=== PATIENT | female | born 1975 | race Caucasian/White ===

== ENCOUNTER 2017-09-21 12:49 | Emergency (ER) | payer BC, SELFPAY ==
[2017-09-21 12:50] VITALS: BP 156/90; PULSE 84; RESP 16; TEMP 36.3; O2SAT 99; BMI 32.2
--- NOTE | 2017-09-21 13:05 | ED.DCSUM_ITS ---
- ER Visit Summary Date of Service: 09/21/17 Chief Complaint: Right hand pain History of Present Illness: The patient is a 42 F who has right hand pain. She states she woke up with it this morning. She was working around the yard yesterday and was poked in the hand with a kendall tariq. She also had her hand in dirty water. She scratched her hand a couple of days ago. She denies any drainage from any areas. She has not had any fevers. The pain is mostly over the second MCP joint and second finger. She does admit to some swelling. Physical Examination: Vital signs reviewed. Right hand exam reveals tenderness palpation of the second MCP joint. There are some pain in the proximal index finger. There is no sausage digit, she does not hold in flexion. No other signs of tenosynovitis. There is mild erythema over the second MCP joint. She also has an abrasion in the distal third finger. Neurologically she is intact and normal. Capillary refill less than 2 seconds Test Results: None indicated Emergency Department Course and Treatment: Patient does appear to have some cellulitis of the right hand. No signs of tenosynovitis. I will place her on clindamycin due to penicillin allergies. She will use NSAIDs. Ice and elevation. Follow-up with PCP Treatment Plan: [] Disposition: Discharge Impression: Right hand cellulitis This note was generated with [employer] dictation software. It may contain incorrect words, spelling, and punctuation that were not noted in review of the chart prior to signing ED Disposition - Plan for ED Patient: Chief Complaint: Upper Extremity Injury Referrals: Chris Bedoya MD [Primary Care Provider] -
--- NOTE | 2017-09-21 13:05 | ED.DEP ---
ED Disposition - Plan for ED Patient: Disposition: Home or Assisted Living Chief Complaint: Upper Extremity Injury Instructions: ED Infec Skin Cellulitis Prescriptions: Clindamycin [Cleocin] 300 mg PO TID #42 cap Referrals: Chris Bedoya MD [Primary Care Provider] -
[2017-09-21] MEDS: Clindamycin HCl 150 MG Capsule 300 MG PO (13:08)
== END 2017-09-21 13:14 | disposition home or self-care (01) ==
LOC: ED 13:13
PROVIDERS: Emergency Provider Emergency Medicine; Family Provider Family Medicine; PCP Family Medicine
DX: L03.113 Cellulitis of right upper limb (principal); I10 Essential (primary) hypertension; Z86.73 Personal history of transient ischemic attack (TIA), and cerebral infarction without residual deficits; Z72.0 Tobacco use; Z88.0 Allergy status to penicillin
CPT/HCPCS: 99283